=== PATIENT | female | born 1990 | race African-American/Black ===

== ENCOUNTER 2024-01-06 19:45 | Emergency (ER) | payer MEDICAID, SELFPAY ==
[2024-01-06 19:56] VITALS: BP 123/88; PULSE 76; RESP 16; TEMP 36.1; O2SAT 99
--- NOTE | 2024-01-06 20:01 | CRLHL7_ITS ---
For Patients: As a result of the Century Cures Act, medical imaging exams and procedure reports are released immediately into your electronic medical record. You may view this report before your referring provider. If you have questions, please contact your health care provider. INDICATION: with abdominal pain. TECHNIQUE: Ultrasound OB pelvis transvaginal. Real-time gonzalez-scale imaging of the pelvis was performed. COMPARISON: None. FINDINGS: Intrauterine gestation: Single. heart activity (bpm): 152. [place]-rump length: 1.24 cm. Estimated ultrasound age: 7 weeks 3 days. DAWSON by ultrasound: August 21, 2024. Yolk sac: Normal. Perigestational hemorrhage: Present measuring 30 x 10 x 8 mm. Ovaries and adnexa: Unremarkable. Suspicious pelvic fluid collections: None. IMPRESSION: Single viable intrauterine . There is a moderate-sized subchorionic hemorrhage. No other abnormality. Dictated by Landon Dawkins MD @ 01/06/2024 9:47:34 PM (Electronically Signed)
--- NOTE | 2024-01-06 20:05 | ED_ITS ---
HPI - General Adult General Time Seen by Provider: 20:06 Date Seen: 01/06/24 Chief complaint: OB/Uterine Contractions Stated complaint: -not sure how far-back and stomach pain Time Seen by Provider: 01/06/24 20:04 Source: patient, family and RN notes reviewed Mode of arrival: ambulatory Limitations: no limitations History of Present Illness HPI narrative: Kendra is a very pleasant 33-year-old female history of unknown dates but thinks that maybe her last period was December 12 who comes to the emergency room for evaluation of pain in the abdomen and back. Patient states that she I had the onset of right lower quadrant pain last evening with associated low back pain. Today the back pain persists and the pain in the abdomen is still in the right lower quadrant but now she occasionally has cramping and other aspects of her pelvis. She has not had any vaginal bleeding or discharge. She denies a fever. She does have a history of a complicated IUD removal according to nursing staff. She denies tobacco use but has used marijuana, denies alcohol use except for earlier in her when she did not know she was . Denies any history of addictions. Notes that she has nausea but no active vomiting. No diarrhea. No blood in her urine. She does note that she has a pressure to urinate but no distinct pain. Patient notes 3 previous healthy pregnancies. She notes a traumatic removal of an IUD and the bilateral ovarian cysts which did require surgical intervention. She was told that she could not get again. Thus, she has not been using control. She has a new partner. No worries about STIs. Related Data Home Medications ?Medication ?Instructions ?Recorded ?Confirmed No Known Home Medications 01/06/24 01/06/24 Allergies Allergy/AdvReac Type Severity Reaction Status Date / Time No Known Drug Allergies Allergy Verified 01/06/24 20:00 Review of Systems Status of ROS: Reports: 10 or more systems reviewed and unremarkable except as noted in History and below Const: Denies: fever or chills ENMT: Denies: neck pain or nasal congestion Cardio: Denies: chest pain or shortness of breath with exertion Resp: Denies: shortness of breath GI: Reports: abdominal pain and nausea; Denies: vomiting, diarrhea or blood in stool : Reports: urinary frequency and urinary urgency; Denies: painful urination, blood in urine or vaginal odor Musculo: Reports: back pain; Denies: neck pain Integ/Breast: Denies: rash Neuro: Denies: headache PFSH PFSH Social History Do you use any of these nicotine containing products: None Non-prescribed substance use: denies use Exam Narrative: Exam Narrative: Alert and oriented. Sitting in leaning forward in the bed holding her right lower quadrant. External ears eyes nose clear. Good eye contact mentation normal. Heart with regular rate and rhythm and lungs are clear to auscultation. Abdomen is soft. Significant right lower quadrant pain with palpation. Less so rebound discomfort. No mass palpated. Moving all extremities. Pelvic exam: Normal female external genitalia. Speculum is inserted. No unusual discharge. Discharge that is present is collected for GC chlamydia and wet prep. I do not visualize cervix. However, with bimanual exam I believe I am feeling the cervix and there is no pain with it is manipulation. Fullness in the right lower quadrant but no discrete mass. Increased discomfort in the right lower quadrant. Const: Vital Signs, click to edit/add: Vital Signs - 24 hr 01/06/24 19:56 01/06/24 22:35 Temperature 96.9 F L Pulse Rate [Pulse Oximeter] 76 71 Respiratory Rate 16 16 Blood Pressure [Ri ght Upper Arm] 123/88 121/79 Pulse Oximetry 99 100 Oxygen Delivery Me thod Room Air Room Air Documenting provider has reviewed patient's vital signs: yes Course Course ED Course: At this time Kendra is presenting with right lower 24 hours with radiation into her back. States that her last period was December 12. At this time will have an IV placed and give morphine 4 mg and Zofran 4 mg as well a 500 mL normal saline for pain control. Differential diagnosis includes but is not limited to ovarian torsion, ovarian cyst, hemorrhagic cyst rupture, appendicitis, ectopic . Ultrasound has been ordered at this time. Will also check CBC, comprehensive panel, CRP, urinalysis, hCG. Reevaluation(s) Reevaluation #1: Morphine did seem to help the pain and I was able to go back and do pelvic exam. White count elevated at 14.45 with a CRP of 1.3. Sodium slightly low at 1 3 3 but creatinine potassium within normal limits. LFTs within normal limits. HCG quant is 57,060. Urinalysis shows no evidence of UTI. Wet prep shows no evidence of Trichomonas yeast or clue cells. Gonorrhea and chlamydia negative. overhead door technician question possibility of a hemorrhagic cyst but there is no fluid in the pelvis. I was able to speak to Dr. Dawkins radiologist in regards to this patient and there does not appear to be significant hemorrhagic cyst that would explain the acute pain. I have spoken to Kendra and her partner in regards to CT of the abdomen after speaking to our OB contract consultant. Did ?1 in 2500 childhood leukemia is associated with CT in utero. However the losses much higher with appendicitis and missed diagnoses. Kendra agrees to undergo CT which is my recommendation at this time. Additional dose of morphine given for discomfort as patient states her pain is back up to 7/10. Vital Signs Vital signs: Initial Vital Signs Temperature 96.9 F L 01/06/24 19:56 Temperature Source Temporal Artery Scan 01/06/24 19:56 Pulse Rate 76 01/06/24 19:56 Respiratory Rate 16 01/06/24 19:56 Blood Pressure 123/88 01/06/24 19:56 Blood Pressure Mean 99 01/06/24 19:56 Blood Pressure Position Supine 01/06/24 19:56 Pulse Oximetry 99 01/06/24 19:56 Oxygen Delivery Method Room Air 01/06/24 19:56 Vital Signs Temperature 96.9 F L 01/06/24 19:56 Pulse Rate 76 01/06/24 19:56 Respiratory Rate 16 01/06/24 19:56 Blood Pressure 123/88 01/06/24 19:56 Pulse Oximetry 99 01/06/24 19:56 Oxygen Delivery Method Room Air 01/06/24 19:56 Temperature 96.9 F L 01/06/24 19:56 Pulse Rate 71 01/06/24 22:35 Respiratory Rate 16 01/06/24 22:35 Blood Pressure 121/79 01/06/24 22:35 Pulse Oximetry 100 01/06/24 22:35 Oxygen Delivery Method Room Air 01/06/24 22:35 Medications Administered Medications: Discontinued Medications Generic Name Dose Route Start Last Admin Trade Name Freq PRN Reason Stop Dose Admin Sodium Chloride 500 mls @ 500 mls/hr 01/06/24 20:19 01/06/24 21:57 0.9 % Sodium Chloride 500 Ml IV 01/06/24 21:18 Infused .Q1H ONE Infusion Morphine Sulfate 2 mg 01/06/24 20:14 01/06/24 20:33 Morphine 2 Mg/Ml Inj IVP 01/06/24 20:15 2 mg ONCE ONE Administration Morphine Sulfate 2 mg 01/06/24 22:29 01/06/24 22:34 Morphine 2 Mg/Ml Inj IVP 01/06/24 22:30 2 mg ONCE ONE Administration Ondansetron HCl 4 mg 01/06/24 20:19 01/06/24 20:33 Ondansetron 2 Mg/Ml Inj IVP 01/06/24 20:20 4 mg ONCE ONE Administration Medical Decision Making MDM Narrative Medical decision making narrative: 1. Abdominal pain-unknown etiology. Initially there is a suspicion of a hemorrhagic cyst but no free fluid in the pelvis and after discussion with Radiology he did not feel that was the cause of this pain. No evidence of ovarian torsion or free fluid in the pelvis. Given ongoing pain for 24 hours we should have seen a manifestation of a torsed ovary or blood for secondary to hemorrhagic cyst. No evidence of ectopic , STI. Given the patient's discomfort risks benefits of CT discussed with patient and patient underwent CT of the abdomen and there is normal appendix at this time. I do not have etiology for patient's pain. She has tested negative for GC chlamydia and wet prep is negative as well. She denies any recent trauma falls or heavy lifting. At this time will have her follow-up with OBGYN. Recommend Tylenol resting and returning to the ER for fever, worsening symptoms and as needed. 2. IUP-measuring 7 weeks and 3 days patient is fairly surprised that she is as she was told in the past she would not be able to get . She seems happy with this . 3. Disposition-home at this time. Will have patient follow-up at the OBGYN clinic for ongoing issues. Return to the emergency room for fever, vomiting, pain not controlled by Tylenol. No evidence of UTI. Did discuss was with patient subchorionic hemorrhage. She is not experiencing any spotting but she may in the future. Lab Data Lab results reviewed: Yes I reviewed the patient's lab results Labs: Lab Results 01/06/24 01/06/24 01/06/24 Range/Units 20:14 20:20 20:30 WBC 14.45 H (4.50-11.00) K/uL RBC 4.83 (4.00-5.20) m/uL Hgb 14.0 (12.0-16.0) gm/dL Hct 42.5 (33.0-51.0) % MCV 88 (80-100) fL MCH 29 (26-34) pg MCHC 33 (32-36) gm/dL RDW Coeff of Korina 13.1 (11.5-15.5) % Plt Count 275 (140-440) K/uL Neut % (Auto) 66.3 (42.0-72.0) % Lymph % (Auto) 22.8 (20-44) % [place] % (Auto) 8.9 (0.0-11.0) % Eos % (Auto) 1.4 (0.0-7.0) % Baso % (Auto) 0.3 (0.0-3.0) % Neut # (Auto) 9.60 H (1.7-7.0) K/uL Lymph # (Auto) 3.30 H (0.90-2.90) K/uL [place] # (Auto) 1.30 H (0.00-0.90) K/UL Eos # (Auto) 0.20 (0.00-0.50) K/uL Baso # (Auto) 0.00 (0.00-0.30) K/uL Abs Immat Gran (auto) 0.00 (0.00-0.30) K/uL Imm/Tot Granulo (auto) 0.3 % Sodium 133 L (135-149) mmol/L Potassium 4.0 (3.6-5.1) mmol/L Chloride 102 (96-114) mmol/L Carbon Dioxide 21 (20-32) mmol/L Anion Gap 10 (7-15) mEq/L BUN 19 (5-24) mg/dL Creatinine 0.5 (0.5-1.5) mg/dL Estimated GFR 126 ml/min Glucose 92 (60-115) mg/dL Calcium 9.1 (8.4-10.6) mg/dL Total Bilirubin 0.3 (0.1-1.5) mg/dL AST 28 (12-35) U/L ALT 18 (4-35) U/L Alkaline Phosphatase 83 (40-150) U/L C-Reactive Protein 1.3 H (0.5-1.0) mg/dL Total Protein 8.1 (6.0-8.3) g/dL Albumin 4.6 (3.3-5.0) g/dL HCG, Quant 43940.00 mIU/mL Urine Color Yellow (Yellow) Urine Appearance Clear (Clear) Urine pH 5.5 (5.0-8.5) Ur Specific [place] 1.025 (1.000-1.030) Urine Protein Negative (Negative) Urine Glucose (UA) Negative (Negative) Urine Ketones Negative (Negative) Urine Blood Negative (Negative) Urine Nitrite Negative (Negative) Urine Bilirubin Negative (Negative) Urine Urobilinogen 0.2 (0.2-1.0) Ur Leukocyte Esterase Negative (Negative) Urine RBC 0-2 (0-2) Urine WBC 2-5 (0-5) Ur Squamous Epith Cells Few (None-Few) Urine Bacteria Few A (None) Vaginal Trichomonas No Trichomonas Seen (None Seen) Vaginal Yeast No Yeast Seen (None Seen) Vaginal Clue Cells No Clue Cells Seen (None Seen) C.trachomatis Ampl DNA NOT DETECTED (No Detected) N.gonorrhoeae Ampl DNA NOT DETECTED (No Detected) Imaging Data US - abdomen: Attestation: I have reviewed the pertinent imaging results. CT scan - abdomen: Attestation: I have reviewed the pertinent imaging results. My impression: I do not see evidence of stone or appendicitis on CT Radiologist's impression: Lower chest: Unremarkable. Liver: Unremarkable. Normal in size and attenuation. No suspicious masses. Gallbladder and bile ducts: Unremarkable. No stones or inflammation. No biliary dilatation. Pancreas: Unremarkable. No mass or inflammation. Spleen: Unremarkable. Normal in size. No masses. Adrenal glands: Unremarkable. No nodules. Kidneys: Unremarkable. No suspicious masses, stones, or hydronephrosis. GI tract: Unremarkable. Normal in caliber. No sign of mass or inflammation. Normal appendix. Vasculature: Abdominal aorta is normal in caliber. Mesenteric arteries are patent. Lymph nodes: No lymphadenopathy. Peritoneum/Abdominal Wall: Unremarkable. No sign of mass or infiltration. No free air or significant free fluid. Pelvis: Gravid uterus. Small normal-appearing corpus luteum in the left ovary. Right ovary is normal. No ovarian or adnexal cysts or masses. Bones: Unremarkable for age. IMPRESSION: 1. No specific finding to explain right lower quadrant pain. 2. Normal appendix. 3. Gravid uterus. Ovaries and adnexa are normal. No sign of ovarian mass or cyst as was suggested on the earlier ultrasound. Discharge Plan Discharge Clinical Impression: Abdominal pain, Early stage of Patient Disposition: Home, Self-Care Condition: Improved Additional Instructions: At this time we are on able to find etiology of your pain. Appendix appears to be normal and his is ovary. No evidence of a large cyst or twisted ovary. Recommend at this time follow-up with our OBGYN clinic. If you have ongoing symptoms it would be great if you were seen tomorrow. The phone number is [phone]. If your symptoms are actually worsening please return to the emergency room for further evaluation. Prescriptions: No Action No Known Home Medications Follow Up/Referrals: Provider,Not a Local [Primary Care Provider] - Stand Alone Forms: [employer] Info Instructions
[2024-01-06 20:27] LABS: Basophils Percent Auto 0.3 % (0.0-3.0); Eosinophils Percent Auto 1.4 % (0.0-7.0); Hematocrit 42.5 % (33.0-51.0); Immature Granulocytes Pct Auto 0.3 %; Lymphocytes Percent Auto 22.8 % (20-44); Mean Corpuscular HGB Conc 33 gm/dL (32-36); Mean Corpuscular Hemoglobin 29 pg (26-34); Mean Corpuscular Volume 88 fL (80-100); Monocytes Percent Auto 8.9 % (0.0-11.0); Neutrophils Percent Auto 66.3 % (42.0-72.0); Platelet Count* 275 K/uL (140-440); RDW Coefficient of Variation % 13.1 % (11.5-15.5); Red Blood Count 4.83 m/uL (4.00-5.20); White Blood Count* 14.45 K/uL (4.50-11.00)
[2024-01-06] MEDS: ONDANSETRON 2 MG/ML inj 4 MG IVP (20:33)
[2024-01-06] MEDS: MORPHINE 2 MG/ML inj IVP ×2 (20:33→22:34)
[2024-01-06] MEDS: 0.9 % SODIUM CHLORIDE 500 ML 500 ML IV (20:33)
[2024-01-06 20:39] LABS: Appearance Urine Clear (Clear); Bilirubin Urine Negative (Negative); Blood Urine Negative (Negative); Color Urine Yellow (Yellow); Glucose Urine Negative (Negative); Ketones Urine Negative (Negative); Leukocyte Esterase Urine Negative (Negative); Nitrite Urine Negative (Negative); Protein Urine Negative (Negative); Specific Gravity Urine 1.025 (1.000-1.030); Urobilinogen Urine 0.2 (0.2-1.0); pH Urine 5.5 (5.0-8.5)
[2024-01-06 20:39] LABS: Chloride* 102 mmol/L (96-114)
[2024-01-06 20:40] LABS: Albumin* 4.6 g/dL (3.3-5.0); Sodium* 133 mmol/L (135-149)
[2024-01-06 20:42] LABS: Creatinine* 0.5 mg/dL (0.5-1.5); Estimated Glomerular Filt Rate 126 ml/min
[2024-01-06 20:43] LABS: Alanine Aminotransferase* 18 U/L (4-35); Alkaline Phosphatase* 83 U/L (40-150); Anion Gap 10 mEq/L (7-15); Aspartate Amino Transferase* 28 U/L (12-35); Bilirubin Total* 0.3 mg/dL (0.1-1.5); Blood Urea Nitrogen* 19 mg/dL (5-24); Carbon Dioxide* 21 mmol/L (20-32); Glucose* 92 mg/dL (60-115); Total Protein* 8.1 g/dL (6.0-8.3)
[2024-01-06 20:44] LABS: Calcium* 9.1 mg/dL (8.4-10.6)
[2024-01-06 20:46] LABS: C Reactive Protein* 1.3 mg/dL (0.5-1.0)
[2024-01-06 20:52] LABS: Bacteria Urine Few; RBC Urine 0-2 (0-2); Squamous Epithelial Cell Urine Few (None-Few)
[2024-01-06 21:02] LABS: Clue Cells No Clue Cells Seen (None Seen); Trichomonas No Trichomonas Seen (None Seen); Yeast No Yeast Seen (None Seen)
[2024-01-06 21:19] LABS: Slide Review Reflex No
[2024-01-06 22:25] LABS: Chlamydia DNA Amplified* NOT DETECTED (No Detected); GC DNA Amplified* NOT DETECTED (No Detected)
[2024-01-06 22:35] VITALS: BP 121/79; PULSE 71; RESP 16; O2SAT 100
--- NOTE | 2024-01-06 23:04 | CRLHL7_ITS ---
For Patients: As a result of the Century Cures Act, medical imaging exams and procedure reports are released immediately into your electronic medical record. You may view this report before your referring provider. If you have questions, please contact your health care provider. INDICATION: Right lower quadrant pain. Seven weeks . TECHNIQUE: CT abdomen and pelvis acquired with 83 cc Isovue 370 IV contrast. COMPARISON: None. FINDINGS: Lower chest: Unremarkable. Liver: Unremarkable. Normal in size and attenuation. No suspicious masses. Gallbladder and bile ducts: Unremarkable. No stones or inflammation. No biliary dilatation. Pancreas: Unremarkable. No mass or inflammation. Spleen: Unremarkable. Normal in size. No masses. Adrenal glands: Unremarkable. No nodules. Kidneys: Unremarkable. No suspicious masses, stones, or hydronephrosis. GI tract: Unremarkable. Normal in caliber. No sign of mass or inflammation. Normal appendix. Vasculature: Abdominal aorta is normal in caliber. Mesenteric arteries are patent. Lymph nodes: No lymphadenopathy. Peritoneum/Abdominal Wall: Unremarkable. No sign of mass or infiltration. No free air or significant free fluid. Pelvis: Gravid uterus. Small normal-appearing corpus luteum in the left ovary. Right ovary is normal. No ovarian or adnexal cysts or masses. Bones: Unremarkable for age. IMPRESSION: 1. No specific finding to explain right lower quadrant pain. 2. Normal appendix. 3. Gravid uterus. Ovaries and adnexa are normal. No sign of ovarian mass or cyst as was suggested on the earlier ultrasound. Please note that all CT scans at this facility use dose modulation, iterative reconstruction, and/or weight-based dosing when appropriate to reduce radiation dose to as low as reasonably achievable. Dictated by Landon Dawkins MD @ 01/06/2024 11:53:52 PM (Electronically Signed)
== END 2024-01-07 00:13 | disposition home or self-care (01) ==
PROVIDERS: Emergency Provider Family Medicine
DX: R10.31 Right lower quadrant pain (principal); Z3A.01 Less than 8 weeks gestation of pregnancy
CPT/HCPCS: 36415; 74177; 76817; 80053; 81001; 84702; 85025; 86140; 87086; 87210; 87491; 87591; 96374; 96375; 96376; 99284; J2270; J2405; J7030; Q9967